=== PATIENT | male | born 1990 | race Hispanic/Latino ===

== ENCOUNTER 2018-12-14 15:14 | Emergency (ER) | payer OTHER ==
[2018-12-14 15:19] VITALS: BP 148/92; PULSE 66; RESP 18; TEMP 97.6; O2SAT 98; BMI 26.6
--- NOTE | 2018-12-14 15:26 | C.PDOC ---
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 Patient states a needle grazed the tip of his finger during a procedure, and I didnt realize it happened until I removed the glove. No current bleeding or swelling. Patient denies any other associated symptoms. Time Seen by Provider: 12/14/18 15:18 Chief Complaint (Nursing): Needle Stick History Per: Patient History/Exam Limitations: no limitations Onset/Duration Of Symptoms: Mins Current Symptoms Are (Timing): Still Present Past Medical History Reviewed: Historical Data, Nursing Documentation, Vital Signs Family History: States: Unknown Family Hx - Social History Hx Tobacco Use: No Hx Alcohol Use: No Hx Substance Use: No Review Of Systems Constitutional: Negative for: Fever, Chills Respiratory: Negative for: Shortness of Breath Gastrointestinal: Negative for: Vomiting Musculoskeletal: Negative for: Hand Pain Skin: Positive for: Other (needle stick) Neurological: Negative for: Weakness, Numbness Physical Exam - Physical Exam Appears: Well, Non-toxic, No Acute Distress Skin: Warm, Dry, No Rash Head: Atraumatic, Normacephalic Eye(s): bilateral: Normal Inspection Neck: Normal ROM Chest: Symmetrical Respiratory: No Accessory Muscle Use, Other (NARD) Extremity: Normal ROM (with AROM of digits), No Tenderness, No Deformity, No Swelling, Other (< 1 cm superficial laceration to the tip of left 3rd digit, no active bleeding) Pulses: Left Radial: Normal, Right Radial: Normal Neurological/Psych: Oriented x3 ED Course And Treatment - Laboratory Results Result Diagrams: 12/14/18 15:37 12/14/18 15:37 Medical Decision Making Medical Decision Making: Plan: - Labs sent - Tetanus booster updated - Patient started on PO Cipro PT STATES UNKOWN HIV STATUS OF PERSON ON WHICH HE PERFORMED PROCEDURE. PENDING HIV TEST RESULT OF PT. DEFER HIV PROPH @ THIS TIME. Disposition Counseled Patient/Family Regarding: Studies Performed, Diagnosis, Need For Followup, Rx Given - Disposition Referrals: [facility] [Provider Group] Disposition: HOME/ ROUTINE Disposition Time: 15:38 Condition: GOOD Additional Instructions: YOU HAVE BEEN OFFERED POST EXPOSURE PROPHYLAXIS BUT HAVE REFUSED AT THIS TIME. FOLLOW UP [facility]. Prescriptions: Cephalexin [cephalexin] 500 mg PO BID #14 cap Instructions: Wound Care (DC), Post-Exposure Prophylaxis Forms: Exam18 (Namibian), Work Excuse - Clinical Impression Clinical Impression: Needle stick injury - Scribe Statement The provider has reviewed the documentation as recorded by the Zenaidaibjon Guzman Provider Attestation: All medical record entries made by the Zenaidaibe were at my direction and personally dictated by me. I have reviewed the chart and agree that the record accurately reflects my personal performance of the history, physical exam, medical decision making, and the department course for this patient. I have also personally directed, reviewed, and agree with the discharge instructions and disposition.
[2018-12-14] MEDS ORDERED: Tetanus/Diphtheria Toxoids 0.5 ml Syringe IM ONE ×2 (15:38→15:53)
[2018-12-14 15:47] LABS: BASO # 0.1 K/uL (0.0-0.2); BASO % 1.1 % (0.0-2.0); EOS # 0.1 K/uL (0.0-0.7); EOS % 1.7 % (0.0-4.0); HEMOGLOBIN 15.7 g/dL (12.0-18.0); LYMPH # 2.2 K/uL (1.0-4.3); LYMPH % 31.8 % (20.0-40.0); MEAN CELL VOLUME 89.7 fL (80.0-94.0); MEAN CORPUSCULAR HEMOGLOBIN 30.4 pg (27.0-31.0); MEAN CORPUSCULAR HGB CONC 33.8 g/dL (33.0-37.0); MEAN PLATELET VOLUME 9.5 fL (7.2-11.7); MONO # 0.6 K/uL (0.0-0.8); MONO % 8.7 % (0.0-10.0); NEUT # 3.9 K/uL (1.8-7.0); NEUT % 56.7 % (50.0-75.0); RBC 5.18 Mil/uL (4.40-5.90); RED CELL DISTRIBUTION WIDTH 12.7 % (11.5-14.5)
[2018-12-14 16:04] LABS: ALB/GLOB RATIO 1.8 (1.0-2.1); ALBUMIN 5.2 g/dL (3.5-5.0); ALT/SGPT 47 U/L (21-72); AMYLASE 71 U/L (30-110); AST/SGOT 32 U/L (17-59); BLOOD UREA NITROGEN 18 mg/dL (9-20); CALCIUM 9.7 mg/dl (8.6-10.4); GFR NON-AFRICAN AMERICAN > 60
[2018-12-14 16:26] LABS: SQUAMOUS EPITHIAL < 1 /hpf (0-5); URINE BACTERIA RARE (<OCC); URINE BILIRUBIN NEGATIVE (NEGATIVE); URINE BLOOD NEGATIVE (NEGATIVE); URINE CLARITY Hazy (Clear); URINE COLOR Yellow (YELLOW); URINE GLUCOSE (UA) NORMAL (Normal); URINE LEUKOCYTE ESTERASE NEG Leu/uL (Negative); URINE PROTEIN NEGATIVE (NEGATIVE); URINE UROBILINOGEN NORMAL mg/dL (0.2-1.0)
[2018-12-14 16:33] LABS: HEPATITIS B SURFACE AG Negative (NEGATIVE)
[2018-12-14 16:39] LABS: HEPATITIS A IGM NEGATIVE (NEGATIVE); HEPATITIS B CORE AB NEGATIVE (NEGATIVE)
[2018-12-14 16:51] LABS: HEPATITIS C ANTIBODY NEGATIVE (NEGATIVE)
== END 2018-12-14 16:09 | disposition home or self-care (01) ==
LOC: C.ER 15:14
DX: Z77.21 Contact with and (suspected) exposure to potentially hazardous body fluids (principal); W46.0XXA Contact with hypodermic needle, initial encounter; Z23 Encounter for immunization